=== PATIENT | male | born 1965 | race African-American/Black ===

== ENCOUNTER 2017-10-05 13:07 | Emergency (ER) | payer SELFPAY ==
[~2017-10-05] VITALS: Ht 195.6 cm; Wt 145.2 kg
[2017-10-05] MEDS ORDERED: FLEXERIL10 MG PO (14:24)
[2017-10-05] MEDS ORDERED: MOTRIN800 MG PO (14:24)
[2017-10-05 14:55] VITALS: BP 121/102
== END 2017-10-05 15:10 | disposition home or self-care (01) ==
LOC: EME 13:07
DX: S16.1XXA Strain of muscle, fascia and tendon at neck level, initial encounter (principal); S80.811A Abrasion, right lower leg, initial encounter; V49.40XA Driver injured in collision with unspecified motor vehicles in traffic accident, initial encounter; E11.9 Type 2 diabetes mellitus without complications; F41.9 Anxiety disorder, unspecified; Z98.84 Bariatric surgery status; Z88.1 Allergy status to other antibiotic agents
CPT/HCPCS: 72050; 99281; 99284